=== PATIENT | female | born 1955 | race Caucasian/White ===

== ENCOUNTER 2017-07-13 07:00 | Inpatient (IN) | payer OTHER ==
[~2017-07-13] VITALS: Ht 157.5 cm; Wt 71.0 kg
[2017-10-17] MEDS ORDERED: METFORMIN HCL1000 M2 PO (18:54)
[2017-10-17] MEDS ORDERED: TRAMADOL HCL50 M1 PO (18:55)
[2017-10-17] MEDS ORDERED: ALTACE5 M2 PO (18:55)
[2017-10-17] MEDS ORDERED: METOPROLOL TART25 M1 PO (18:55)
[2017-10-17] MEDS ORDERED: ASPIRIN EC81 M1 PO (18:56)
[2017-10-17] MEDS ORDERED: LIVALO2 M1 PO (18:56)
[2017-10-17] MEDS ORDERED: CLOPIDOGREL75 M1 PO (18:56)
[2017-10-17] MEDS ORDERED: VITAMIN B COMP1 EACH PO (18:57)
[2017-10-17] MEDS ORDERED: VITAMIN D5000 UNIT PO (18:57)
[2017-10-17] MEDS ORDERED: VITAMIN B-121000 MC3 PO (18:57)
[2017-10-17] MEDS ORDERED: UBIQUINOL100 MG PO (18:57)
[2017-10-17] MEDS ORDERED: MAGNESIUM400 M1 PO (18:58)
[2017-10-19] MEDS ORDERED: BASAGLAR K100 UNIT/1 (14:42)
--- NOTE | 2017-10-21 09:43 | Admission Core Measures ---
Acute Coronary Syndrome (CM) ACS Core Measures Acute Coronary Syndrome Diagnosis No Congestive Heart Failure (NEW) CHF Core Measures Congestive Heart Failure Diagnosis No Cerebrovascular Accident (NEW) CVA Core Measures CVA/TIA Diagnosis No Venous Thromboembolism VTE Core Vickie (View Protocol) VTE Risk Factors Surgery No Mechanical VTE Prophylaxis d/t N/A MechProphylax Ordered No VTE Pharm Prophylaxis d/t NA PharmProphylax ordered Problem List As ranked by this Provider includes Assessment & Plan 1. Unilateral primary osteoarthritis, left hip HOME MEDS Home Med List Aspirin (Ecotrin*) 81 MG TABLET.DR 1 TAB PO DAILY HEART/BLOOD (Reported) Cholecalciferol (Vitamin D3) (Vitamin D) 5,000 UNIT TABLET 1 TAB PO DAILY SUPPLEMENT (Reported) Clopidogrel Bisulfate (Clopidogrel) 75 MG TABLET 1 TAB PO DAILY BLOOD THINNER (Reported) Cyanocobalamin (Vitamin B-12) (Unknown Strength) TABLET (Unknown Dose) PO DAILY SUPPLEMENT (Reported) Insulin Glargine,Hum.rec.anlog (Basaglar Kwikpen U-100) 100 UNIT/ML (3 ML) INSULN.PEN 8 UNITS 2200 DM (Reported) Magnesium Oxide (Magnesium) 400 MG CAPSULE 1 CAP PO DAILY SUPPLEMENT ( Reported) Metformin HCl (Metformin HCl ER) 1,000 MG TAB.ER.24 1 TAB PO BID DM (Reported ) Metoprolol Tartrate 25 MG TABLET 1 TAB PO BID HEART/BP (Reported) Pitavastatin Calcium (Livalo) 2 MG TABLET 1 TAB PO DAILY CHOLESTEROL ( Reported) Ramipril (Altace) 5 MG CAPSULE 1 CAP PO DAILY BP (Reported) Tramadol HCl 50 MG TABLET 2 TAB PO BID PAIN (Reported) Ubiquinol (Unknown Strength) CAPSULE (Unknown Dose) PO DAILY SUPPLEMENT ( Reported) Vitamin B Complex 1 EACH CAPSULE 1 CAP PO DAILY SUPPLEMENT (Reported)
[2017-10-21] MEDS ORDERED: MIRALAX17 G1 PO (09:45)
[2017-10-21] MEDS ORDERED: ASPIRIN EC325 M2 PO (09:45)
[2017-10-21] MEDS ORDERED: DILAUDID2 M1 PO (09:45)
[2017-10-21] MEDS ORDERED: COLACE100 M1 PO (09:45)
[2017-10-21] MEDS ORDERED: PEPCID20 M1 PO (09:45)
--- NOTE | 2017-10-21 09:50 | Patient Discharge Instructions ---
Discharge Instructions General Discharge Information You were seen/treated for: Left hip pain related to unilateral primary osteoarthritis You had these procedures: Left total hip replacement Watch for these problems: Increasing pain despite the use of pain medication Increasing redness, warmth or swelling Drainage of any type from incision Inability to bear weight on operative leg Persistent nausea and vomiting Fever greater than 101.5 degrees Do not soak the wound: Yes No bath, but you may shower: Yes Other wound care: Please keep wound clean and dry. No ointments or lotions of any type on or near incision at any time. No exceptions. Your dressing will be changed by your nurse on the second day after your surgery. Daily dry dressing changes are recommended each day thereafter. Do not soak your wound in a bath at any time until otherwise indicated by your surgeon. You may shower, please dry wound immediately after shower with a clean towel. Special Instructions: PLAVIX: DO NOT TAKE THIS MEDICATION UNTIL ONE WEEK FROM DATE OF SURGERY Aspirin: You are taking this medication to help prevent blood clot formation. Please take with food to protect your stomach lining. Please take as directed. Constipation: Pain medication can cause constipation. Dr. Locke has recommended that you take Colace and miralax each day. You may discontinue this medication if you develop loose stool or diarrhea. If you wish to continue this medication, it is available over the counter. If you are unable to move your bowels after several days, if you are unable to pass gas and are developing bloating, nausea, or vomiting as a result, please contact your doctor. Diet Continue normal diet: Yes Recommended Diet: Regular Activity Full Activity/No Limits: No Activity Self Limited: Yes Pounds, do NOT lift more than: 10 Activity Limited to: Weight bear as tolerated Acute Coronary Syndrome Inclusion Criteria At DC or during hospital stay patient has or had the following: ACS DIAGNOSIS No Discharge Core Measures Meds if any: Prescribed or Continued at Discharge Meds if any: NOT Prescribed or Continued at Discharge Congestive Heart Failure Inclusion Criteria At DC or during hospital stay patient has or had the following: CHF DIAGNOSIS No Discharge Core Measures Meds if any: Prescribed or Continued at Discharge Meds if any: NOT Prescribed or Continued at Discharge Cerebrovascular accident Inclusion Criteria At DC or during hospital stay patient has or had the following: CVA/TIA Diagnosis No Discharge Core Measures Meds if any: Prescribed or Continued at Discharge Meds if any: NOT Prescribed or Continued at Discharge Venous thromboembolism Inclusion Criteria VTE Diagnosis No VTE Type NONE VTE Confirmed by (Test) NONE Discharge Core Measures - Per Current guidelines, there needs to be overlap - treatment for the first 5 days of Warfarin therapy. - If discharged on Warfarin prior to 5 days of - overlap therapy, the patient will need to be - assessed for post discharge needs including - *Post discharge parental anticoagulation - *Warfarin and/or parental anticoagulation education - *Follow up date to check INR post discharge At least 5 days overlap therapy as Inpatient No Meds if any: Prescribed or Continued at Discharge Note: Overlap Therapy is Warfarin and Anticoagulant Meds if any: NOT Prescribed or Continued at Discharge
--- NOTE | 2017-10-21 09:52 | Surgical Discharge Summary ---
Visit Information Visit Dates Admission Date: 10/21/17 Discharge Date: 10/22/17 History of Present Illness Chief Complaint: Left hip pain related to unilateral primary osteoarthritis Surgical History Pertinent Surgical History: non-contributory Review of Systems: See H&P Hospital Course Course Attending Physician: Des Locke MD Primary Care Physician: Jan TOMLINSON,[facility] Course: Patient was admitted to the hospital for an elective total joint replacement. The procedure was tolerated well and patient was transferred to a general surgical floor. Diet was advanced and tolerated, and the patient voided spontaneously. The patient was evaluated and treated by physical therapy. At the time of hospital discharge, the vital signs were stable, neurovascular status was intact, and pain was controlled with the use of oral pain medications. Allergies: Coded Allergies: No Known Allergies (10/17/17) Disposition Summary Disposition Principal Diagnosis: Left hip unilateral primary osteoarthritis Additional Diagnosis: None Discharge Disposition: home health services Discharge Instructions General Discharge Information Code Status: Full Code Patient's Diet: Regular, advance as tolerated Patient's Activity: WBAT Follow-Up Instructions/Appts: Follow up with Dr. Locke in 6 weeks from date of surgery. Please call his office to arrange and/or confirm this appointment. Medications at Discharge Discharge Medications: Stop taking the following medications: Tramadol HCl (Tramadol HCl) 50 MG TABLET ORAL TWICE DAILY Aspirin (Ecotrin*) 81 MG TABLET.DR ORAL DAILY Clopidogrel Bisulfate (Clopidogrel) 75 MG TABLET ORAL DAILY Continue taking these medications: Metformin HCl (Metformin HCl ER) 1,000 MG TAB.ER.24 1 Tablet ORAL TWICE DAILY Comments: not taken in hospital Metoprolol Tartrate (Metoprolol Tartrate) 25 MG TABLET 1 Tablet ORAL TWICE DAILY Comments: Last Taken: 10/22/17 Time: 8:30 am Ramipril (Altace) 5 MG CAPSULE 1 Capsule ORAL DAILY Comments: not taken in hospital Pitavastatin Calcium (Livalo) 2 MG TABLET 1 Tablet ORAL DAILY Comments: not taken in hospital Ubiquinol (Ubiquinol) (Unknown Strength) CAPSULE Unknown Dose ORAL DAILY Comments: not taken in hospital Cyanocobalamin (Vitamin B-12) (Unknown Strength) TABLET Unknown Dose ORAL DAILY Comments: not taken in hospital Vitamin B Complex (Vitamin B Complex) 1 EACH CAPSULE 1 Capsule ORAL DAILY Comments: not taken in hospital Cholecalciferol (Vitamin D3) (Vitamin D) 5,000 UNIT TABLET 1 Tablet ORAL DAILY Comments: not taken in hospital Magnesium Oxide (Magnesium) 400 MG CAPSULE 1 Capsule ORAL DAILY Comments: not taken in hospital Insulin Glargine,Hum.rec.anlog (Basaglar Kwikpen U-100) 100 UNIT/ML (3 ML) INSULN.PEN 8 Units 2200 Comments: not taken in hospital Start taking the following new medications: Aspirin (Ecotrin*) 325 MG TABLET.DR 1 Tablet ORAL TWICE DAILY Qty = 60 No Refills Comments: Last Taken:10/22/17 Time: 8:30 am Docusate Sodium (Colace) 100 MG CAPSULE 1 Capsule ORAL TWICE DAILY Qty = 14 No Refills Instructions: DISCONTINUE USE IF YOU DEVELOP LOOSE STOOL OR DIARRHEA Comments: Last Taken: 10/22/17 Time: 8:30 am Polyethylene Glycol 3350 (Miralax) 17 GRAM POWD.PACK 1 Packet ORAL DAILY Qty = 7 No Refills Instructions: dissolve in water, DISCONTINUE USE IF YOU DEVELOP LOOSE STOOL OR DIARRHEA Comments: Last Taken: Time: 8:30 am Hydromorphone HCl (Dilaudid) 2 MG TABLET 1-2 Tablet ORAL EVERY 4-6 HOURS NEEDED as needed for PAIN Qty = 36 No Refills Comments: Last Taken: 10/22/17 Time: 3:00 am Famotidine (Pepcid) 20 MG TABLET 1 Tablet ORAL TWICE DAILY Qty = 60 No Refills Comments: Last Taken: 10/22/17 Time:8:30 am
--- NOTE | 2017-10-21 10:44 | RADIOLOGY REPORT ---
EXAMINATION: XR HIP, LEFT CLINICAL INFORMATION: 62-year-old female following total hip replacement. COMPARISON: None available TECHNIQUE: Portable AP and shoot through lateral views of the left hip in the PACU. FINDINGS: The total hip replacement is in the normally expected position. No complications are seen. On the lateral view, there is incomplete visualization of the acetabular cup but no dislocation is suspected. IMPRESSION: Status post THR. No complications.
[2017-10-21 11:04] VITALS: BP 134/70
--- NOTE | 2017-10-21 14:46 | Operative Report ---
Operative/Inv Procedure Report Surgery Date: 10/21/17 Name of Procedure: Left total hip replacement Pre-Operative Diagnosis: Primary left hip DJD Post-Operative Diagnosis: Same Estimated Blood Loss: 250 Surgeon/Racking Technician: Cornelia TOMLINSON,Des Han Anesthesia: block Operative/Procedure Note Note: Description of Procedure: The patient was taken to the operating room and positively identified. After induction of spinal anesthesia and administration of appropriate pre-operative antibiotics, the patient was positioned supine on the operating room table and all bony prominences were well padded. After performing a surgical timeout, the left lower extremity was prepped and draped in the usual sterile fashion. A direct anterior approach was made to the left hip. The incision was carried sharply through superficial soft tissues to the level of the fascia. Meticulous hemostasis was maintained with Bovie electocautery. The fascia over the tensor fascia radha muscle was opened sharply and the interval between the TFL and the sartorius was entered bluntly taking care to stay lateral to the lateral femoral cutaneous nerve. Retractors were placed around the femoral neck and the pericapsular fat was identified. The ascending branches of the lateral femoral circumflex vessels were identified and carefully coagulated. The pericapsular fat and anterior capsule were then resected. A napkin ring osteotomy was performed and the femoral head was removed without difficulty. Attention was then turned to the acetabulum. After appropriate placement of retractors, the acetabulum was exposed. Soft tissue was cleaned from the acetabular margin and notch. Overhanging osteophytes were removed and the teardrop was exposed. The acetabulum was then sequentially reamed to accept a 54 mm [place] Tritanium hemispherical solid shell. This was impacted into place in the appropriate position and fitted with a 36 mm Trident X3 zero degree polyethylene insert. Attention was then turned to the femur. After performing the appropriate ligament releases, the proximal femur was exposed. It was then sequentially broached to accept a size #4 [place] Accolade 2 stem. This was trialed for leg length and stability. The trial component was removed and the final component was impacted into place. The trunnion was carefully cleaned and fit with a 36 mm, and a -2.5 Biolox delta ceramic femoral head. The hip was reduced and put through a full range of motion and found to be stable. The articular space was then irrigated with sterile saline. The periarticular soft tissues were infilitrated with Marcaine. The fascial layer was closed with interrupted #1 vicryl suture and the skin was re-approximated with interrupted 2 -0 vicryl. The skin was closed with a running 3-0 V-Lock suture. Steri-strips and a sterile dressing were applied. The patient was awakened and taken to the recovery room in satisfactory condition.
--- NOTE | 2017-10-21 14:54 | PN- Orthopedic ---
Subjective Subjective: POSTOP CHECK Patient reports discomfort in her left hip which is well controlled. She is tolerating a diet, without any nausea or vomiting. She reports ambulating with PT, has not cleared stairs yet. Denies any numbness, tingling, fever, chills, chest pain or shortness of breath. Objective Vital Signs and I&Os Vital Signs Date Time Temp Pulse Resp B/P B/P Pulse O2 O2 Flow FiO2 Mean Ox Delivery Rate 10/21 1104 94.0 60 14 134/70 96 Room Air Intake & Output 10/21 1600 10/21 0800 10/21 0000 10/20 1600 10/20 0800 10/20 0000 Intake Total 400 Output Total 300 Balance 100 Intake, IV 400 Output, Urine 300 Patient 156 lb Weight Physical Exam: Gen - resting comfortably in nad Cardiac - S1S2 noted Lungs - CTAB Ext - Left hip dressing c/d/i, ice in place, moves all extremities, motor an sensory intact, alps in place, no edema or calf tenderness B/L Current Medications: Current Medications Sig/Dali Start time Last Medication Dose Route Stop Time Status Admin Acetaminophen 1,000 MG Q6 10/21 1200 AC 10/21 IV 10/22 0601 1250 Acetaminophen 0 .STK-MED ONE 10/21 0719 DC PO Acetaminophen 975 MG ONCE 10/21 0000 DC PO 10/21 2359 Aspirin 325 MG BID 10/21 2100 AC PO Atorvastatin Calcium 10 MG 1700 10/21 1700 AC PO Cefazolin Sodium 2 GM IQ8 10/21 1600 AC N/A 1 UNIT IV 10/22 0029 Cefazolin Sodium 2,000 MG ONCE 10/21 0000 DC IV 10/21 2359 Docusate Sodium 100 MG BID 10/21 2100 AC PO Famotidine 20 MG BID 10/21 2100 AC PO Fentanyl Citrate 100 MCG .STK-MED ONE 10/21 0637 DC IM 10/21 0638 Hydromorphone HCl 2 MG Q4P PRN 10/21 1030 AC PO Hydromorphone HCl 4 MG Q4P PRN 10/21 1030 AC PO Insulin Human Regular 0 TIDAC/HS 10/21 1200 AC 10/21 SC 1250 Lisinopril 20 MG DAILY 10/22 0900 AC PO Metoprolol Tartrate 25 MG BID 10/21 2100 AC PO Midazolam HCl 2 MG .STK-MED ONE 10/21 0637 DC IM 10/21 0638 Morphine Sulfate 2 MG Q2P PRN 10/21 1030 AC IV Ondansetron HCl 4 MG Q6P PRN 10/21 1030 AC IV Oxycodone HCl 0 .STK-MED ONE 10/21 0719 DC PO Oxycodone HCl 10 MG ONCE 10/21 0000 DC PO 10/21 2359 Polyethylene Glycol 17 GM DAILY 10/22 0900 AC PO Promethazine HCl 12.5 MG Q6P PRN 10/21 1030 AC IV 10/28 0944 Sodium Chloride 1,000 ML .[id number] 10/21 1030 AC 10/21 IV 1249 Tranexamic Acid 2,000 MG .STK-MED ONE 10/21 0637 DC IV 10/21 0638 Assessment/Plan Assessment/Plan 62 F w/ hx of htn, dm, hld, gastroparesis, anxiety, cad, hx NE s/p cabg and pci who is POD 0 s/p L THR due to left hip OA, recovering well OOB w/ PT, WBAT Cont ada diet, IVF Postop op abx - ancef x2 DVT ppx - asa bid tonight, teds, alps GI ppx on board ISS, fingersticks tidac hs Bowel regimen on board Home meds ordered Plavix on hold x1 week Encourage IS Anticipate d/c home with [facility] tomorrow Core Measures Venous Thromboembolism VTE Risk Factors Surgery No Mechanical VTE Prophylaxis d/t N/A MechProphylax Ordered No VTE Pharm Prophylaxis d/t NA PharmProphylax ordered
[2017-10-21 15:01] VITALS: BP 132/80
[2017-10-21 17:16] VITALS: BP 116/60
[2017-10-21 22:21] VITALS: BP 116/68
[2017-10-22 01:00] VITALS: BP 110/62
[2017-10-22 06:45] VITALS: BP 100/64
[2017-10-22 08:33] VITALS: BP 132/70
--- NOTE | 2017-10-22 08:47 | PN- Student ---
Jose Srivastava 10/22/17 0830: Subjective Subjective: no overnight events, patients pain well controlled. pt reports difficulty sleeping last night due to discomfort in bed, tolerated chair better. pt states she frequently has discomfort while sleeping at home. tolerated po without N/V, ambulated multiple times, voiding spontaneously. deneis dizziness, headache, fever, chills, CP, SOB. Objective Objective: Vital Signs Date Time Temp Pulse Resp B/P B/P Pulse O2 O2 Flow FiO2 Mean Ox Delivery Rate 10/22 0645 98.4 67 20 100/64 100 Room Air 10/22 0100 98.2 67 20 110/62 97 Room Air 10/21 2221 98.2 82 18 116/68 95 10/21 2150 82 116/68 10/21 1716 98.1 79 18 116/60 95 Room Air 10/21 1501 97.8 74 20 132/80 93 10/21 1104 94.0 60 14 134/70 96 Room Air Intake & Output 10/22 1600 10/22 0800 10/22 0000 Intake Total 800 1000 Output Total 1900 300 Balance -1100 700 Intake, IV 600 600 Intake, Oral 200 400 Output, Urine 1900 300 General: resting comfortably in chair, NAD, actively participated ine xam, A&Ox3 cardiac: RRR, no MRG Pulm: CTAB, no accessory muscle usage abdomen: NT,ND lower extremities: no edema, dressing CDI, small area of erythema around the distal-medial portion of the dressing, no drainage. thigh compartments soft, moderate incisional tenderness and mild tenderness of the skin over the distal thigh. motor and sensory function grossly intact b/l, 2+DP/PT pulses b/l. Assessment/Plan Assessment: patient is a 62 y/o female, PMH of DM, HTN, HLD, CAD s/p cabg and PCI, POD#1 s/p left SHARON. patient progressing well post-op, pain well controlled at rest, incisional pain appropriate, pain over distal thigh likely due to nerve irritation from traction during surgery, no evidence of hematoma formation or compartment syndrome at this time, ambulation progressing well, awaiting formal PT eval. Plan: continue current pain management, plan to switch to PO pain control prior to d/c diet: CC WBAT PPX: ASA 325, ALPS, OOB d/c IVF once sufficient PO intake await PT eval continue home medications, hold plavix f/u labs Herberth Posey 10/22/17 1029: Assessment/Plan Plan: Agree with above, patient reports discomfort in her thigh, dressing c/d/i, slight surrounding erythema in the medial aspect, compartment soft, no evidence of hematoma. She is nvi and appropriately tender on exam, motor and senory intact. Labs reviewed. Cleared stairs with PT, stable for discharge. Patient expressed concern taking asa in combination with plavix in 1 week. Will d/w Dr. Locke and update patient via phone.
[2017-10-22 09:37] LABS: ABSOLUTE BASOPHIL COUNT 0.1 /CUMM (0.0-0.2); ABSOLUTE EOSINOPHIL COUNT 0.1 /CUMM (0.0-0.7); ABSOLUTE GRANULOCYTE CT 6.4 /CUMM (1.4-6.5); ABSOLUTE LYMPH COUNT 2.7 /CUMM (1.2-3.4); ABSOLUTE MONOCYTE COUNT 0.6 /CUMM (0.10-0.60); BASOPHIL % 0.8 % (0.0-2.0); GRANULOCYTE % 64.6 % (42.2-75.2); MEAN CORPUSCULAR HGB CONC 33.7 G/DL (33.0-37.0); MEAN CORPUSCULAR VOLUME 83.3 FL (81.0-99.0); MEAN PLATELET VOLUME 9.8 FL (7.4-10.4); PLATELET COUNT 220 /CUMM (130-400); RBC DISTRIBUTION WIDTH 15.8 % (11.5-14.5); WHITE BLOOD CELL COUNT 9.8 /CUMM (4.8-10.8)
== END 2017-10-22 10:50 | disposition home health service (06) | DRG 470 ==
LOC: SDA 10-21 00:48 → 2NA 10-21 00:48 → ENRESERV 10-21 09:49 → ENTRNSPT 10-21 10:28 → EDTRNSPT 10-21 10:44 → EDTRNSPTSTS 10-21 10:44 → 2NA 10-21 10:51 → CMPTRNSPT 10-21 11:03 → ENPENDDIS 10-22 10:29 → ENTRNSPT 10-22 10:36 → EDTRNSPTSTS 10-22 10:42 → EDTRNSPT 10-22 10:42 → 2NA 10-22 10:50 → CMPTRNSPT 10-22 11:00
PROVIDERS: Nurse Practitioner
PROC: 0SRB04A Replacement of Left Hip Joint with Ceramic on Polyethylene Synthetic Substitute, Uncemented, Open Approach (ICD-10-PCS; principal; 2017-10-21)
DX: M16.12 Unilateral primary osteoarthritis, left hip (principal); E83.42 Hypomagnesemia; K31.84 Gastroparesis; F41.9 Anxiety disorder, unspecified; Z79.4 Long term (current) use of insulin; Z79.82 Long term (current) use of aspirin; I25.10 Atherosclerotic heart disease of native coronary artery without angina pectoris; I25.2 Old myocardial infarction; Z95.1 Presence of aortocoronary bypass graft; I10 Essential (primary) hypertension; E78.5 Hyperlipidemia, unspecified; E11.9 Type 2 diabetes mellitus without complications; M71.9 Bursopathy, unspecified; Z90.710 Acquired absence of both cervix and uterus
CPT/HCPCS: 2NAP; 36592; 73502-LT; 81003; 82436; 97116-GO; 97161-GP; 97530-GO; J0131; J0690; J0735; J1815; J2550; J3490